=== PATIENT | male | born 1945 | race Two or more races ===

== ENCOUNTER 2024-05-15 13:03 | Inpatient (IN) | payer MEDICARE, SELFPAY ==
[2024-05-15] VITALS (13 sets, daily range): BP systolic 129–151; BP diastolic 54–65; BMI 24.9; BMI 25.5
--- NOTE | 2024-05-15 05:59 | EDRN ---
Patient arrives with PICC line in right arm and PEG tube.
--- NOTE | 2024-05-15 06:05 | ED.GENMED ---
History of Present Illness
General
Chief Complaint: Breathing Problem
Source: patient
Exam Limitations: none
Time Seen by Provider: 05/15/24 06:03
Nursing documentation reviewed up to this point in time: agreed with
History of Present Illness
History of Present Illness:
The patient is a pleasant 78-year-old man with a past medical history of head and neck cancer who is under the treatment of oncology at [facility]. According to his daughter, he receives immunotherapy 6 times a year to keep his cancer in remission and so
far, according to his daughter, his remission has been successful. The patient was brought in by ambulance after the family called 911 after they observed the patient's pulse ox to be in the 70s throughout the night. Patient does complain of
increased labored breathing and increased cough. Family reports that the patient has a history of aspiration pneumonia and primarily has nutrition through his feeding tube. In addition, he recently completed a course of various antibiotics through
a PICC line for an orbital cellulitis. His reports that the PICC line is due to be taken out tomorrow. Patient denies chest pain and pain anywhere. Patient does arrive with what looks like a right facial droop, however, the family reports
that the patient has a history of chronic trigeminal neuralgia which exacerbates and causes the symptoms from time to time. Patient also reports that overall they think the patient appears to look more puffy in his arms and legs.
Past History
Past History
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
ED Past Surgical History: Cardiac, Cholecystectomy and Other
Social History
Tobacco: Other
Alcohol: Other
Drug: None
Personal:
Living: with family
Employment: Other
Family History
Family History: Other
Review of Systems
Review of Systems
Allergies reviewed?: Yes
Other source history: family
All Other Systems: ROS reviewed and negative except as documented in HPI and ROS
Constitutional: Reports fever and fatigue
EENT: Reports other (Tightness of right face which appears from his trigeminal neuralgia)
Respiratory: Reports cough and trouble breathing
Cardiac: Reports no symptoms
ABD/GI: Reports diarrhea ('chronic' diarrhea from recent antibiotics according to family)
: Reports no symptoms
Musculoskeletal: Reports no symptoms
Skin: Reports no symptoms
Neurological: Reports no symptoms
Endocrine: Reports no symptoms
Hematologic/Lymphatic: Reports no symptoms
Psychiatric: Reports no symptoms
Phy Exam
Physical Exam
Physical Exam:
Physical Exam
General: Patient appears chronically ill but is fully awake, alert and answering questions. Right face appears drooped
Neck: supple. no meningeal signs. normal posterior pharynx
Heart: s1/s2 regular rate and rhythm
Lungs: Patient appears tachypneic. Short of breath with speaking. bilateral basal crackles
Abdomen: normal bowel sounds. Soft throughout. Feeding tube in place. Mildly distended
Neuro: alert and oriented. no focal neurological deficits
Skin: no rash
Psychiatric: well kept. interactive and cooperative
Extremities: no edema. no calf tenderness. negative homans. good distal pulses
Scores
Heart Failure Risk
Heart Failure Risk Score: Not Applicable
Course
Orders/Labs/Results
Orders:
Orders
05/15/24 05:55
EKG [Electrocardiogram (*1)] Urgent
Reason for Study: Shortness of Breath
EKG- Treatment ONCE
05/15/24 06:23
CR Chest - 2 Views Urgent
Comment:
Reason For Exam: hypoxia, SOB
05/15/24 06:[address] Non Medication Order As Directed
Physician Order: Chest x-ray reviewed. Able to use PICC line.
Above order entered?: Yes
05/15/24 07:20
Complete Blood Count/With Diff Urgent
Comprehensive Metabolic Panel Urgent
NT-proBNP Urgent
Troponin I Urgent
05/15/24 07:40
COVID-19 Antigen Urgent
Source: Nasal Swab
05/15/24 08:07
CT Chest Pe Study Urgent
Comment:
Reason For Exam: hypoxia, cough
05/15/24 08:58
Fluorescein Sodium [Ful-Melany] 1 mg .ROUTE .STK-MED ONE
Tetracaine HCl [Tetracaine 0.5% Ophthalmic Solution] 1 drop .ROUTE .STK-MED ONE
05/15/24 09:24
Furosemide [Lasix] 40 mg IV NOW STA
05/15/24 09:27
Lactic Acid Q4H
Comment: CANCEL 2nd LACTIC ACID IF 1st LACTIC ACID IS LESS THAN 2
Procalcitonin Urgent
PCT Algorithmm Indication: Respiratory
05/15/24 12:15
Lactic Acid Q4H
Comment: CANCEL 2nd LACTIC ACID IF 1st LACTIC ACID IS LESS THAN 2
Abnormal Lab Results
05/15/24
07:20
RBC 2.85 L 10^6/uL
(4.70-6.10)
Hgb 8.5 L g/dL
(13.0-18.0)
Hct 23.8 L %
(39.0-52.0)
Abs Immat Gran (auto) 0.1 H 10^3/uL
(0-0.05)
Absolute Lymphs (auto) 1.1 L 10^3/uL
(1.2-3.4)
Absolute Monos (auto) 1.3 H 10^3/uL
(0.1-0.6)
Immature Gran % 0.8 H %
(0-0.5)
Lymphocytes % 13.3 L %
(20.5-51.1)
Monocytes % 16.5 H %
(1.7-9.3)
BUN 28 H mg/dl
(9-20)
Glucose 109 H mg/dl
(70-99)
Total Protein 5.3 L g/dl
(6.3-8.2)
Albumin 3.2 L g/dl
(3.5-5.0)
05/15/24 07:20
05/15/24 07:20
Vital Signs
Initial and Last Documented VS:
Initial Vital Signs
Pulse Resp Pulse Ox
83 22 90
05/15/24 05:56 05/15/24 05:56 05/15/24 05:56
Last Documented Vital Signs
Temp Pulse Resp BP Pulse Ox
99.3 F 74 19 129/57 97
05/15/24 06:07 05/15/24 06:26 05/15/24 06:26 05/15/24 07:01 05/15/24 07:02
MDM/Problems Addressed
Differential Diagnosis Includes:
Pneumonia, pulmonary embolism, CHF
MDM/Problems Addressed:
Patient presents with acute hypoxia and shortness of breath
Chronic conditions affecting care:
Given patient has a history of chronic dysphagia, he is at increased risk of developing pneumonia.
Given patient has a history of coronary artery disease he is at increased risk of developing heart failure
Acute Exacerbation and/or Progression of Chronic Illness:
Patient may have acute exacerbation of aspiration which may have caused pneumonia
*Radiology
Radiology exam reviewed: preliminary read by ED provider (PICC line in good placement. Right pleural effusion with possible infiltrate seen by me. Chest x-ray reviewed by me) and radiology read reviewed
*Pulse Oximetry
Patient hypoxic: yes
*EKG
Interpreted by ED Provider?: Yes
Interpretation: normal
Comparison EKG: no comparison EKG present
Rate: normal
Rhythm: sinus
[place]: normal axis
Interval: normal interval
QRS Pattern: normal QRS
Ischemia: no ischemia
*Gleason Operator Interpretation
Rate: normal
Interpretation: normal
Rhythm: sinus
*Critical Care Note
Total Time (30-74mins, 75-104mins- exclusive of procedures): 47 minutes
comment:
47 minutes of critical care given to the patient including speaking to the family and patient multiple times to explain his condition, as well as reviewing patient's chest x-ray, CT, as well as speaking to the hospitalist at [facility]
[place] to gain more knowledge of patient's condition and recent antibiotic use.
Data Reviewed
Source: family
Patient Management
Social determinants of health affecting care: Living situation and Strong social support
Escalation/DeEscalation of care consider admission/obs:
Given patient's acute hypoxia and fluid overload, decision made to admit the patient for nasal oxygen and diuresis.
Update Note
Update Note:
7:30 am family expresses that they like patient transferred to Given that he has never been to [place] before and is somewhat of a complex patient given his history of recent infection and head and neck cancer. I called [facility] transfer center who
spoke to the oncologist on-call who then referred me to speak to the hospitalist. I spoke to the hospitalist, Dr. Harper, who was able to go over the patient's allergies with me as well as the antibiotics recently given to him. Dr. Harper to me the
patient is documented to be allergic to Augmentin due to a rash, he gets nausea and vomiting from Bactrim, he gets a rash from vancomycin, and reportedly gets mental status changes from Benadryl. Dr. Harper to me that the patient has tolerated
cefepime, Rocephin, and Levaquin. Dr. Harper told me that the patient was given Flagyl, linezolid and aztreonam for treatment of the orbital cellulitis. Dr. Harper also told me that the patient would not be able to get an inpatient bed at [facility] for at
least 7 days so transferring the patient would not be practical. I did explain this to the patient's family as well as the patient and assured him that we can comfortably treat him here at [place] and certainly be in touch with [facility] for any
concerns. We have also ordered old records from his last admission at [facility].
ED Attending Note
-
Portions of this chart may have been created with voice recognition software.� Occasional wrong word or��sound alike� substitutions may have occurred due to the inherent limitations of voice recognition software.
Discharge Plan
Departure
Patient Disposition: Admit
Date of Disposition: 05/15/24
Time of Disposition: 09:12
Admit to: Med/Surg
Presentation/result/management discussed w/ accepting MD/DO: Hospitalist
Patient with high blood pressure during this ER visit?: No
Condition: Good
Covid-19: Not Applicable
Discharge Problem:
Bilateral pleural effusion, Acute hypoxic respiratory failure
Referrals:
Gume Zamudio MD [Family Provider] -
Interventions
Interventions:
*General Assessment Last Done: 05/15/24 05:59
ED- Cardiac Assessment Last Done: 05/15/24 06:09
ED- Pulmonary Assessment Last Done: 05/15/24 06:07
Discharge Date and Time
Print Language: SYRIAC
[2024-05-15 07:36] LABS: % Basophils 0.3 % (0-2); % Eosinophils 2.7 % (0-6); % Immature Granulocytes 0.8 % (0-0.5); % Lymphocytes 13.3 % (20.5-51.1); % Monocytes 16.5 % (1.7-9.3); % Neutrophils 66.4 % (42.2-75.2); Absolute Eosinophils 0.2 10^3/uL (0-0.7); Absolute Immature Granulocytes 0.1 10^3/uL (0-0.05); Absolute Lymphocytes 1.1 10^3/uL (1.2-3.4); Absolute Monocytes 1.3 10^3/uL (0.1-0.6); Absolute Neutrophils 5.3 10^3/uL (1.4-6.5); Hematocrit 23.8 % (39.0-52.0); Hemoglobin 8.5 g/dL (13.0-18.0); Mean Corp Hgb Conc. 35.7 g/dL (33.0-37.0); Mean Corpuscular Hgb 29.8 pg (27.0-31.0); Mean Corpuscular Volume 83.5 fL (80.0-94.0); Platelet Count 147 10^3/uL (130-400); Red Blood Cell Count 2.85 10^6/uL (4.70-6.10); White Blood Cell Count 7.9 10^3/uL (4.8-10.8)
[2024-05-15 07:53] LABS: ALT (SGPT) 15 U/L (0-50); AST (SGOT) 19 U/L (17-59); Albumin 3.2 g/dl (3.5-5.0); Alkaline Phosphatase 45 U/L (38-126); Blood Urea Nitrogen 28 mg/dl (9-20); Calcium 8.4 mg/dl (8.4-10.2); Carbon Dioxide 29 mmol/L (22-30); Chloride 104 mmol/L (98-107); Estimated Creatinine Clearance 52 ml/min; Glucose 109 mg/dl (70-99); Potassium 4.3 mmol/L (3.5-5.1); Sodium 135 mmol/L (135-145); Total Bilirubin 0.4 mg/dl (0.2-1.3); Total Protein 5.3 g/dl (6.3-8.2); eGFR > 60.00
[2024-05-15 08:00] LABS: NT-proBNP 4200 pg/ml; Troponin I 0.027 ng/ml
[2024-05-15 08:20] LABS: COVID-19 Antigen Negative (Negative)
[2024-05-15 10:05] LABS: Lactic Acid 0.8 mmol/L (0.7-2.0)
[2024-05-15 10:24] LABS: Procalcitonin < 0.05 ng/ml (0.0-0.25)
[2024-05-15] MEDS: LASIX 40 MG IV (11:35)
--- NOTE | 2024-05-15 11:49 | HPS.HSE ---
Family Physician
-
Family Physician: Gume Zamudio MD
Chief Complaint
-
Shortness of breath, puffy legs
History of Present Illness
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
cellulitis (due to be removed 05/16), H/O sinus tachycardia that is presenting to the ED today for the complaint of shortness of breath. He was brought in by ambulance after family called 911, they observed his pulse ox to be near 70% over the night
the patient complained of worsening cough and labored breathing. Family reports that he does have previous episodes of aspiration, requiring nutrition via feeding tube. He additionally recently completed a course of multiple IV antibiotics through
a PICC line for orbital cellulitis. PICC line scheduled to be taken out on 05/16/2024. Patient denies chest pain, wheezing, fevers or chills, paresthesias, nausea/vomiting/diarrhea, urinary issues, abnormal bleeding or bruising. The patient and
his family state that his legs look more puffy than usual.
The patient's daughter is at the bedside and provides supplemental history. She states that he was previously treated with rituximab and radiation for his squamous cell carcinoma of the head and neck. She denies any known systemic chemotherapy,
denies doxorubicin or other pechanga-based agent. He was recently at [place] where he received blood transfusion and IV fluids following anemia with hemoglobin 6.7. Anemia was felt to be nutritional, no report of bleeding mention. He received these
fluids on 05/14/2024. Additionally he had thrush during a recent hospital stay and completed antifungal therapy. 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 He currently has a strict NPO
status due to high aspiration risk and anatomic abnormalities. She currently helps administer feedings through PEG tube with nutritional supplements, with Nutren 1.5 twice daily (states that 4 times daily was recommended, have not reached that
point in their titration).
Upon her arrival to the ED he was afebrile, hemodynamically stable, on room air with SpO2 90%. He was placed on 2 L of supplemental oxygen with improvement of SpO2 to high 90s. Labs in the ED showed hemoglobin 8.5, BNP 4200, BUN 28 though are
otherwise unremarkable. Troponin was negative, ECG without acute ST deviation or STEMI equivalent. CTA chest did not show any signs of PE, though CTA and x-ray with signs of pulmonary edema and small bilateral pleural effusions. He was given
Lasix 40 mg in ED.
Medical History
Past Medical History
Past Medical History: Reports HTN and NIDDM
Additional Past Medical History:
Squamous cell carcinoma�head and neck
Past Surgical History: Reports Other
Additional Past Surgical History:
Surgical debulking of squamous cell head and neck carcinoma
Status post PEG
Social History
Tobacco: Former Smoker
Alcohol: None
Drug: None
Family History
Family History: Not pertinent
Allergies / Home Medications
Allergies reflects when Allergies were last updated in [employer]
Home Medications with original date entered in [employer]
Allergy/Medication List:
Augmentin�full-body rash
Bactrim�nausea and abdomen pain
Benadryl�confusion, sensitive to affect
Vancomycin�'red man' syndrome
Cigarette smoke
Review of Systems
-
History Source: Family
A 12 point ROS was completed and negative except as noted: Yes
Constitutional: Reports No Symptoms
Respiratory: Reports Cough and Trouble Breathing
Cardiac: Reports No Symptoms
Abdomen/GI: Reports No Symptoms
Musculoskeletal: Reports No Symptoms
Skin: Reports No Symptoms
Neurological: Reports No Symptoms
Hematologic/Lymphatic: Reports No Symptoms
Physical Exam
Vital Signs
Vital Signs
Temp Pulse Resp BP Pulse Ox
99.3 F 72 17 140/55 98
05/15/24 06:07 05/15/24 11:37 05/15/24 11:37 05/15/24 11:37 05/15/24 11:37
Physical Exam
General: No Apparent Distress, Comfortable and Cachectic; No Respiratory Distress
HEENT: NormoCephalic, Anicteric, Moist mucous membranes and Atraumatic
Respiratory: Clear (To upper lung hooper) and Decreased Breath Sounds (Bilateral bases); No Wheezes, Rales or Rhonchi
Cardiac: S1/S2, Regular Rhythm, Murmur (Systolic), Peripheral Edema (1+ bilateral) and JVD (JVD to 10 cm above sternal angle); No Rub or Gallop
GI: Soft, Non Tender, Non Distended, Normal Bowel Sounds and Peg Tube
Musculoskeletal: No Clubbing, No Cyanosis and Other (Thin and frail, atrophic musculature, no gross deformity)
Skin: Warm and Dry; No Rash or Jaundice
Neuro: AO x 3, Nonfocal/grossly intact and Cranial Nerves Intact
Hematologic/Lymphatic: No Lymphadenopathy
Psych: Calm
Laboratory Results
-
05/15/24 07:20
05/15/24 07:20
Laboratory Results
Lactic Acid Cancelled 05/15/24 12:15
Total Bilirubin 0.4 mg/dl (0.2-1.3) 05/15/24 07:20
AST 19 U/L (17-59) 05/15/24 07:20
ALT 15 U/L (0-50) 05/15/24 07:20
Alkaline Phosphatase 45 U/L (38-126) 05/15/24 07:20
Troponin I 0.027 ng/ml 05/15/24 07:20
Data Reviewed
-
Diagnostic Radiology: Image Personally Visualized and interpreted, Discussed with Patient and Discussed with Family
CT Scan: Report Reviewed by me, Discussed with Patient and Discussed with Family
Lab Data: Labs Reviewed by me, Discussed with Patient and Discussed with Family
Impression/Plan
-
#Acute decompensated CHF, unspecified
#Acute hypoxemic respiratory insufficiency
#Small bilateral pleural effusion
-No known history of previous CHF, presented with hypervolemia and dyspnea; has not received pechanga based chemotherapy
-He was recently DC'd from [place], daughter states yesterday he received blood transfusion and IV fluids, orthopneic overnight
-He does have history of CAD though no known stents, no family history, no signs or symptoms of infiltrative disease
-On arrival had pulmonary congestion, improved with Lasix and 2 L supplemental oxygen
-Warm and wet phenotype, good perfusion present
Plan
-Continue with IV Lasix 40 mg daily, I's/O's and weights, moderate sodium restriction
-Order echocardiogram to assess LVEF, look for WMA or valvulopathy
-Monitor on telemetry for signs of arrhythmia
-Wean supplemental oxygen, SpO2 goal >90%
-Cardiology consult
#Chronic anemia
-Recently discharged from [facility] where he received blood transfusion and IVF for anemia
-Per daughter they believe that this was mostly nutritional in nature, cannot rule out
-Hemoglobin in the ED today was 8.5 with MCV 83.5
-No obvious signs of bleeding, not on anticoagulants
Plan
-Trend daily CBC and monitor for signs of bleeding
-Will defer on iron panel as he is within 24 hours of transfusion
-Hemoglobin goal >7.0
#NIDDM
-Home regimen includes metformin and glipizide via PEG
-No known history of microvascular disease
-Started on ISS with [employer]u-[employer]ks
#CAD
-No known cardiovascular interventions
-ECG, troponin negative here. No chest pain.
#Head and neck SCC
-Currently on immunotherapy which she receives 6 times yearly
-Status post radiation and rituximab; no chemotherapy history
-Receives his care at [facility] oncology
#Trigeminal neuralgia
-Associated with chronic right facial nerve deficit
-Has been mistaken for stroke/seizure and other hospitals
#Hypothyroidism
-Unclear etiology, med list from facility shows levothyroxine 50 mcg daily via PEG
-No signs or symptoms of thyroid dysfunction, added on TSH for completion
#Hypertension
-Home regimen currently includes metoprolol tartrate twice daily and valsartan 320 mg by PEG
-Was previously on amlodipine which was discontinued, metoprolol dose was reduced
-No known systemic complications, BP well-controlled at this time
#H/O sinus tachycardia
-Likely related to chronic deconditioning
-Currently on metoprolol twice daily as above
#PICC line in place
-Recently completed 6 weeks of IV antibiotics for orbital cellulitis/osteo
-PICC line was scheduled to be removed on 05/16, can likely remove while here
#S/P PEG
#History of aspiration
-Home tube feeds consist of Nutren 1.5 twice daily with goal of 4 times daily dosing
-At this point the daughter states he does not take anything by mouth due to very high aspiration risk
-Nutrition consulted for guidance of tube feeds
-Avoid oral medications
DVT prophylaxis: Lovenox
Diet: Resume tube feed intermittently, twice daily for now
CODE STATUS: Full code
Disposition: Admit to telemetry
History obtained by: Family, patient, ED provider
--- NOTE | 2024-05-15 12:53 | PHANOTE ---
med rec patricia(05/15/24)-patient's family states he was recently been switched to a tube only diet. Due to this, metformin ER 500mg QD was stopped since it cannot be crushed. Valsartan 320mg QD was stopped weeks ago due to symptoms.
--- NOTE | 2024-05-15 16:00 | PTCARENOTE ---
Pt received from the ED via stretcher. Transport was w/o incident. Pt is AAOx3, HR sl irreg, NSR in monitoring engineer, resp. easy, pulse ox 97% 2Lvia nc. Pt with noted fine crackles in b/l bases. abd soft, with Peg tube intact. Vss, Pt is afebrile. Pt
and Pt's family instructed on plan of care. Both Pt and family verbalized understanding of instructions. Call augustine is within reach.
[2024-05-15 17:43] LABS: Glucose - Point of Care 115 mg/dl (70-99)
[2024-05-15] MEDS: NOVOLOG FLEXPEN-MODERATE RESISTANCE SC (17:46)
[2024-05-15] MEDS: LOVENOX 40 MG SC (17:47)
[2024-05-15] MEDS: LIPITOR TUBE (17:54)
--- NOTE | 2024-05-15 19:21 | CON.CAR ---
Consultation
Consultation Request
Date/Time Consultation Requested: 05/15/2024 1240
Date/Time Consultation Performed: 05/15/2024 1300
Requesting Provider: Mik Dugan DO
Performing Provider: Florencio Pérez DO
Reason for Consultation: SOB, HF
Medical History
-
Chief Complaint: SOB, edema
History of Present Illness:
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
droop/abnormality, recurrent aspiration status post PEG tube placement 2023, orbital cellulitis March 2024 status post IV antibiotic treatment via PICC to be removed 05/16/2024, possible CAD who presents with worsening shortness of breath and lower
extremity swelling. Patient has extensive medical history and has undergone treatment at [facility] recently discharged from their care following multiple admissions. Patient follows with Dr. Boucher for CV care. Per patient, patient's daughter, and
patient's , patient had noted worsening shortness of breath and lower extremity swelling while at home. Patient recently been discharged from and due to anemia which was felt to be nutritional not related to bleeding. He received transfusions
due to hemoglobin of 6.7. Patient currently denies chest pain, lightheadedness, dizziness, near-syncope, syncope, PND, palpitations, or new or worsening weakness. He does note occasional dizziness with positional changes such as standing and does
routinely sleep on his side/elevated due to chronic GERD and aspiration precautions. Initial evaluation in the emergency department demonstrated patient hemodynamically stable however hypoxic on room air, patient placed on supplemental O2 with
improvement in O2. Initial lab work demonstrated anemia with elevated BNP of 4200. Troponin negative EKG without ST-T abnormality. No evidence of PE noted on CT scan however pleural effusions were noted. No reported family history of heart
disease. Patient is a former smoker, no alcohol, no illicits.
Past Medical History
Past Medical History: Other (per hpi)
Past Surgical History: Other (H/N sq cell carcinoma with surgery debulking, recurrent; PEG (2023))
Social History
Tobacco: Former Smoker
Alcohol: None
Drug: None
Personal:
Living: With Family
Employment: Retired
Family History
Family History: Reviewed & Not Pertinent
Allergies / Home Medications
Allergy/AdvReac Type Severity Reaction Status Date / Time
amoxicillin Allergy Unknown Verified 05/15/24 06:09
clavulanic acid Allergy Unknown Verified 05/15/24 06:09
[From Augmentin]
diphenhydramine Allergy Unknown Verified 05/15/24 06:09
[From Benadryl]
vancomycin Allergy Unknown Verified 05/15/24 06:09
�Medication �Instructions �Recorded �Confirmed �Type
amlodipine 10 mg tablet 10 mg feeding tube HS 05/15/24 05/15/24 History
aspirin 81 mg tablet,delayed 81 mg feeding tube DAILY 05/15/24 05/15/24 History
release
famotidine 20 mg tablet (Pepcid) 20 mg feeding tube DAILYPRN PRN if 05/15/24 05/15/24 History
patient cannot take omeprazole
fluoride (sodium) 1.1 % dental gel 1 applic dental BID 05/15/24 05/15/24 History
(DentaGel)
glimepiride 1 mg tablet 1 mg feeding tube DAILY 05/15/24 05/15/24 History
hydrocortisone 0.5 % topical cream 1 applic topical DAILY back 05/15/24 05/15/24 History
levothyroxine 25 mcg tablet 25 mcg feeding tube DAILY 05/15/24 05/15/24 History
(Synthroid)
loperamide 2 mg capsule 2 mg feeding tube Q6HPRN PRN 05/15/24 05/15/24 History
diarrhea
metoprolol tartrate 25 mg tablet 25 mg feeding tube HS 05/15/24 05/15/24 History
omeprazole 40 mg capsule,delayed 40 mg feeding tube DAILY 05/15/24 05/15/24 History
release
ondansetron 4 mg disintegrating 4 mg feeding tube Q6HPRN PRN nausea 05/15/24 05/15/24 History
tablet
Review of Systems
-
History Source: Patient and Family
All other systems: Negative unless noted
Constitutional: Fatigue
EENT: No Symptoms (no new symptoms)
Respiratory: Cough and Trouble Breathing
Cardiac: No Symptoms and Other (BL LE EDEMA)
Abdomen/GI: No Symptoms
: No Symptoms
Musculoskeletal: No Symptoms
Skin: No Symptoms
Neurological: No Symptoms
Endocrine: No Symptoms
Hematologic/Lymphatic: No Symptoms
Physical Exam
Vital Signs
Temp Pulse Resp BP Pulse Ox
97.8 F 70 16 146/65 97
05/15/24 16:29 05/15/24 16:29 05/15/24 16:29 05/15/24 16:29 05/15/24 16:29
Lab Results
05/15/24 07:20
05/15/24 07:20
Troponin I 0.027 ng/ml 05/15/24 07:20
Kxq-O-Potrglvstdb Pept 4200 pg/ml 05/15/24 07:20
Physical Exam
General: Respiratory Distress (mild, improved with NC; conversational dyspnea) and Other (cachectic; ill appearing)
HEENT: Normocephalic, Anicteric, Moist Mucous Membranes and Other (R facial droop; r facial twitch)
Respiratory: Crackles (BL bases with decreased sounds compared to upper hooper) and Other (no wheeze)
Cardiac: S1/S2, Regular Rhythm, JVD and Other (3/6 PEDRO RUSB; no rub or gallop)
GI: Soft, Non Tender and Other (PEG in place)
Rectal: Deferred by Provider
Musculoskeletal: No Clubbing, No Cyanosis and Edema (1+ BL LE)
Skin: Warm and Dry
Neuro: Awake, Alert, Oriented, No Motor Deficits and Other (R facial droop as noted above)
Psych: Calm
Impression / Plan
-
PCP: Gume Zamudio MD
Primary Cardiology: Colby Boucehr MD
.
Assessment:
Acute heart failure, unclear EF
� Patient reported echocardiogram at [place] as normal
� Follows with Dr. Boucher reported prior testing is unremarkable
� BNP greater than 4000
� Effusions noted on imaging
� EKG sinus rhythm without ST-T abnormality
� Positive exam for heart failure -- edema, JVD; history of dyspnea and orthopnea
Acute hypoxic respiratory insufficiency
Pleural effusion
Heart murmur, systolic ejection murmur
Diabetes mellitus type 2
Chronic anemia, possibly playing a role with dyspnea/hypoxia
Head/neck squamous cell carcinoma undergoing treatment
- h/o of radiation and rituximab; no reported chemotherapy
- on immunotherapy currently 6x/y
Trigeminal neuralgia
Hypothyroid
Hypertension
PEG tube due to aspiration
History of orbital cellulitis undergoing treatment
Recommendations:
� 2D echocardiogram assess cardiac size, shape, function, and valvular anatomy in setting of acute heart failure
� Agree with IV diuresis with Lasix 40 mg IV daily with strict intake and output, daily weights
� Further recommendations to follow echocardiography if further testing is required
� Obtain records from [facility] and primary connection worker
� Monitor on telemetry
Data Reviewed
-
EKG: Tracing Personally Visualized and interpreted
Radiology: Report Reviewed by me
CT Scan: Report Reviewed by me
Labs: Labs Reviewed by me
Old Records: Requested
Total Time Spent with Patient (in minutes): 55
[2024-05-15 21:22] LABS: Glucose - Point of Care 217 mg/dl (70-99)
[2024-05-15] MEDS: LOPRESSOR 25 MG TUBE (21:31)
[2024-05-16] MEDS: SYNTHROID 50 MCG TUBE (06:26)
[2024-05-16 06:28] VITALS: BMI 24.8
[2024-05-16 07:43] VITALS: BP 132/59
[2024-05-16 07:54] LABS: % Basophils 0.4 % (0-2); % Eosinophils 5.8 % (0-6); % Immature Granulocytes 1.1 % (0-0.5); % Lymphocytes 12.9 % (20.5-51.1); % Monocytes 16.6 % (1.7-9.3); % Neutrophils 63.2 % (42.2-75.2); Absolute Eosinophils 0.4 10^3/uL (0-0.7); Absolute Immature Granulocytes 0.1 10^3/uL (0-0.05); Absolute Monocytes 1.3 10^3/uL (0.1-0.6); Absolute Neutrophils 4.8 10^3/uL (1.4-6.5); Hematocrit 25.1 % (39.0-52.0); Hemoglobin 8.7 g/dL (13.0-18.0); Mean Corp Hgb Conc. 34.7 g/dL (33.0-37.0); Mean Corpuscular Hgb 29.6 pg (27.0-31.0); Mean Corpuscular Volume 85.4 fL (80.0-94.0); Nucleated Red Blood Cells % 0.9 % (-); Platelet Count 148 10^3/uL (130-400); Red Blood Cell Count 2.94 10^6/uL (4.70-6.10); Red Cell Dist. Width 12.7 % (11.5-14.5); White Blood Cell Count 7.5 10^3/uL (4.8-10.8)
[2024-05-16 08:05] LABS: Glucose - Point of Care 121 mg/dl (70-99)
[2024-05-16 08:16] LABS: Blood Urea Nitrogen 25 mg/dl (9-20); Calcium 8.5 mg/dl (8.4-10.2); Carbon Dioxide 28 mmol/L (22-30); Chloride 103 mmol/L (98-107); Estimated Creatinine Clearance 55 ml/min; Glucose 113 mg/dl (70-99); Potassium 4.2 mmol/L (3.5-5.1); Sodium 135 mmol/L (135-145); eGFR > 60.00
[2024-05-16] MEDS: NOVOLOG FLEXPEN-MODERATE RESISTANCE SC ×2 (08:21→15:17)
[2024-05-16] MEDS: DIOVAN 320 MG TUBE (08:22)
[2024-05-16] MEDS: LASIX 40 MG IV (08:23)
[2024-05-16] MEDS: SENOKOT-S 1 TABLET TUBE (08:24)
[2024-05-16] MEDS: LOW STRENGTH ASPIRIN 81 MG TUBE (08:24)
[2024-05-16] MEDS: VITAMIN B-12 1000 MCG TUBE (08:24)
[2024-05-16] MEDS: LOPRESSOR 25 MG TUBE ×2 (08:24→20:31)
[2024-05-16] MEDS: NSS (PRESERVATIVE FREE) 10 ML IV (08:25)
[2024-05-16] MEDS: PROTONIX IV 40 MG IV (08:25)
[2024-05-16] MEDS: NIZORAL 2% CREAM 1 APPLIC TOPICAL (08:37)
--- NOTE | 2024-05-16 11:09 | W.PN.CARDCBS ---
Addendum entered and electronically signed by En Melissa DO 05/16/24 14:19:
I saw and examined the patient.
The Furniture Sprayer's note was reviewed and I agree with the note.
Comment:
Plan:
Cont IV lasix diuresis
Echo pending. EF preserved by echo at [facility] as per family
HF teaching. Volume overload a combination of IVF and transfusion
Monitor Is and Os and daily wts.
Discussed with family at bedside.
Original Note:
Today's Communication / Plan
-
Talked with patient and in room and daughter on phone. Reviewed recent [facility] admission and his daughter was able to bring up his echo report and labs in the [place] portal which was very helpful
Repeat echo pending, but EF was preserved by echo 10 days ago.
Cont Lasix 40 mg IV daily and daily labs
Impression / Plan
-
PCP: Gume Zamudio MD
Primary Cardiology: Colby Boucher MD
Assessment:
Acute HFpEF
EF 70-74% by echo at [facility] 05/06/24
Acute hypoxic respiratory insufficiency
Small left and moderate right pleural effusion by CT chest 05/15/24
Heart murmur, systolic ejection murmur
Diabetes mellitus type 2
Chronic anemia, possibly playing a role with dyspnea/hypoxia, s/p transfusion x2 units within the last week
h/o head/neck squamous cell carcinoma undergoing treatment
h/o of radiation and rituximab; no reported chemotherapy
now on Keytruda for >2.5 years
Trigeminal neuralgia
Hypothyroid
Hypertension
PEG tube due to aspiration
History of orbital cellulitis undergoing treatment
Echo 05/06/24: [facility] study, EF 70-74% , no significant valve disease
Plan:
-Talked with patient, at bedside and his daughter by phone 05/16/24. Patient's and daughter are very knowledgeable about patient's PMH and his recent admission to [facility] for orbital cellulitis for which he was treated with Flagyl and Zyvox. He
was dehydrated at [facility] and was given IVFs and then anemic and he was transfused 2 unit PRBCs within the last week. His was handling the home infusion of antibiotics and also had an order for 1 L IVFs once a week, so it sounds like he was given 2
units PRBCs Thursday and then 1 L IVFs on Thursday, then on Thursday he came to [facility] with hypoxia and edema. Suspect possibly iatrogenic volume overload.
-Repeat echo to confirm that EF is preserved and that murmur is not due to severe valve disease. Patient's daughter was able to read echo report to me from the [place] portal over the phone on 05/16/24 and no valvular disease noted
-Patient symptomatically improved with 4 lbs diuresis overnight using Lasix 40 mg IV daily. Patient was not taking a diuretic prior to admission.
-Labs reviewed for 05/16/24 and Cre is 0.8 and BUN 25 which is stable. His edema has improved. Want to avoid ARI and dehydration following recent admission at [facility] for some level of dehydration in addition to the infectious issues as noted. Printed
labs and tubed to nursing station to give to patient's at her request for their records.
-PICC line in place following [place] admission and then home antibiotic infusions. PICC line is due to be removed, but will leave in place while in for labs draws and IV meds. Can remove PICC line when ready to be d/c'd to home.
Progress Note - Tire Bagger
Subjective
Date of Service: May 16, 2024
He is less edematous
Objective
Labs:
05/16/24 07:36
05/16/24 07:38
Labs
Hgb 8.7 g/dL (13.0-18.0) L 05/16/24 07:36
Hct 25.1 % (39.0-52.0) L 05/16/24 07:36
Plt Count 148 10^3/uL (130-400) 05/16/24 07:36
Sodium 135 mmol/L (135-145) 05/16/24 07:38
Potassium 4.2 mmol/L (3.5-5.1) 05/16/24 07:38
BUN 25 mg/dl (9-20) H 05/16/24 07:38
Creatinine 0.8 mg/dL (0.7-1.3) 05/16/24 07:38
Glucose 113 mg/dl (70-99) H 05/16/24 07:38
Troponins
05/15/24
07:20
Troponin I 0.027
Vital Signs and I&O:
Vital Signs
Temp Pulse Resp BP Pulse Ox
98.4 F 73 16 132/59 98
05/16/24 07:43 05/16/24 08:22 05/16/24 07:43 05/16/24 08:22 05/16/24 07:43
Vital Signs
Temp Pulse Resp BP Pulse Ox
98.4 F 73 16 132/59 98
05/16/24 07:43 05/16/24 08:22 05/16/24 07:43 05/16/24 08:22 05/16/24 07:43
Intake & Output
05/14/24 05/15/24 05/16/24 05/17/24
06:59 06:59 06:59 06:59
Intake Total 240 / 240
Output Total 790 / 790
Balance -550 / -550
Physical Exam
Physical Exam
GEN: NAD
HEENT: MMM
LUNGS: No audible wheeze
CV: SR on tele
ABD: ND
EXT: No edema B/L
NEURO: Gross non-focal
SKIN: No rash
[2024-05-16 11:10] VITALS: BMI 24.8
[2024-05-16 11:23] VITALS: BP 147/67
[2024-05-16 11:42] LABS: Glucose - Point of Care 193 mg/dl (70-99)
--- NOTE | 2024-05-16 11:59 | W.PN.HOSP.TC ---
Today's Communication/Plan
-
iv duresis
cards eval
speech eval
2d echo
Assessment / Plan
Assessment / Plan
General: No Apparent Distress
HEENT: Normocephalic, Atraumatic and Moist Mucous Membranes. No JVD
Respiratory: Decreased breath sound
Cardiac: Regular Rhythm and S1/S2 PEDRO RUSB PEDRO left midclavicular line without radiation to the axillary.
GI: Soft, NT, ND, BS+
Musculoskeletal: No Cyanosis , No Edema
Skin: Dry
Neuro: aao x3
Psych: normal affect
Acute congestive heart failure, unknown EF
� 2D echocardiogram
� IV Lasix
� Monitor daily weights
� Monitor urinary output
� Monitor renal function
� Keep K greater than 4
� Keep magnesium greater than 2
� Monitor on telemetry
� Follow cardiology recommendation
� GDMT dependent on EF
Acute hypoxemic respiratory failure, secondary to heart failure, resolved off oxygen.
Chronic anemia
-Recently discharged from [facility] where he received blood transfusion and IVF for anemia
-Per daughter they believe that this was mostly nutritional in nature, cannot rule out
-Hemoglobin in the ED today was 8.5 with MCV 83.5
-No obvious signs of bleeding, not on anticoagulants
-Trend daily CBC and monitor for signs of bleeding
-Will defer on iron panel as he is within 24 hours of transfusion
-Hemoglobin goal >7.0
NIDDM
-Home regimen includes metformin and glipizide via PEG
-No known history of microvascular disease
-Started on ISS with Accu-Cheks
CAD
-No known cardiovascular interventions
-ECG, troponin negative here. No chest pain.
-Continue asa, bb, histatin
Head and neck SCC
-Currently on immunotherapy which he receives 6 times yearly
-Status post radiation and rituximab; no chemotherapy history
-Receives his care at [facility] oncology
#Trigeminal neuralgia
-Associated with chronic right facial nerve deficit
-Has been mistaken for stroke/seizure and other hospitals
� Currently on baclofen. If remains hospitalized will obtain dosing to resume while inpatient
#Hypothyroidism
-Unclear etiology, med list from facility shows levothyroxine 50 mcg daily via PEG
-No signs or symptoms of thyroid dysfunction, added on TSH for completion
#Hypertension
-Home regimen currently includes metoprolol tartrate twice daily and valsartan 320 mg (per does not use) - will dc for now, by PEG
-Was previously on amlodipine which was discontinued, metoprolol dose was reduced
-No known systemic complications, BP well-controlled at this time
#H/O sinus tachycardia
-Likely related to chronic deconditioning
-Currently on metoprolol twice daily as above
#PICC line in place
-Recently completed 6 weeks of IV antibiotics for orbital cellulitis/osteo
-PICC line was scheduled to be removed on 05/16, can likely remove while here
-Can use at this time. Will consider DC when ready for DC
#S/P PEG
#History of aspiration
-Home tube feeds consist of Nutren 1.5 twice daily with goal of 4 times daily dosing
-At this point the daughter states he does not take anything by mouth due to very high aspiration risk
-Nutrition consulted for guidance of tube feeds
-Avoid oral medications
-Family wants Speech to eval.
DVT prophylaxis: Lovenox
Diet: Resume tube feed intermittently, twice daily for now
CODE STATUS: Full code
Anticipated Discharge: 24 - 48 hours
Subjective/Interval History
-
Date of Service: May 16, 2024
Seen and examined. No new complaints. No acute overnight events.
Breathing improved however still not at baseline
at bedside full update provided awaiting 2D echocardiogram continue IV diuretics cardiology to evaluate
Objective Data
-
Labs:
Laboratory Results
05/16/24 05/16/24
07:36 07:38
WBC 7.5
Hgb 8.7 L
Hct 25.1 L
Plt Count 148
Sodium 135
Potassium 4.2
Chloride 103
Carbon Dioxide 28
BUN 25 H
Creatinine 0.8
Glucose 113 H
Calcium 8.5
Vital Signs:
Vital Signs
Temp Pulse Resp BP Pulse Ox
98.2 F 77 18 147/67 94
05/16/24 11:23 05/16/24 11:23 05/16/24 11:23 05/16/24 11:23 05/16/24 11:23
I&O
05/15/24 05/16/24 05/17/24
06:59 06:59 06:59
Intake Total 240 / 240
Output Total 790 / 790
Balance -550 / -550
--- NOTE | 2024-05-16 14:13 | CM ---
Reviewed chart, met with patient's who was at bedside waiting for patient to return from procedure. Patient's stated that he lives with her in a split level home with 2 steps to enter the home and 5 steps to get to his bedroom once inside
the house.
Patient's stated that patient is primarily independent with ADLs, personal care, dressing and bathing but she is there for support. Patient's confirmed that she can do java application engineer, cook, clean and do laundry. Patient has a cane and a
walker but he ambulates independently. He is currently on o2 but does not have any oxygen at home. Right now, per patient's , he is on 2 liters.
Patient's and daughter can drive and get patient to his appointments and do all the shopping.
He has VN services through [facility] as that is the hospital system in which he is affiliated. He has a PICC for ABX he just completed. He has a PEG. Patient's stated that he really does not take anything by mouth.
He has not been to a SNF.
He has a prescription plan and uses, [facility] in [place] for all of his medications.
Patient's PCP is, Dr. Gume Zamudio.
Patient's confirmed that between her, her daughter and son who live close, they can support the scope of patient's care.
She wants resumption of [facility] V[facility].
Plan: Case management will continue to follow and assist with discharge planning. Will watch for o2 needs.
[2024-05-16 15:40] VITALS: BP 157/69
--- NOTE | 2024-05-16 16:11 | PTOTSP ---
ST Acute Care Evaluation
Pt currently presents with mild to moderate oropharyngeal dysphagia characterized by prolonged mastication, bolus formation, and anterior to posterior transport, delayed swallow initiations, inconsistent use of strategies such as R head turn and
cyclical ingestion (needs consistent prompting), and inconsistent airway protection with thin liquids and minced/moist solids.
Recommendations:
- Continue with TF as primary source of nutrition.
- Pt is permitted to also have pureed solids and mildly thick liquids as desired (pt has little desire to eat/drink by mouth). Encourage pt to ingest more mildly thick liquids to help him become accustomed to the consistency and to help with
hydration.
- ARHP - Unlimited ice/water outside of mealtime ONLY after thorough oral care has been performed.
- Aspiration precautions: Pt must be fully awake, alert, and sitting upright for all PO intake; full supervision for both ARHP as well as for all PO intake; small bites/sips; alternate bites/sips; use R head turn for ALL swallows; use double swallow.
- AUTOMOTIVE AIRCONDITIONING MECHANIC to f/u re: pt's tolerance of the recommended diet consistencies, pt's candidacy for diet upgrades, continued pt/family education, and swallowing exercises.
- AUTOMOTIVE AIRCONDITIONING MECHANIC to complete cognitive linguistic evaluation as able.
[2024-05-16 16:22] VITALS: BP 157/69; PULSE 77; O2SAT 97
[2024-05-16 16:37] LABS: Glucose - Point of Care 264 mg/dl (70-99)
[2024-05-16] MEDS: LOVENOX 40 MG SC (17:24)
[2024-05-16] MEDS: LIPITOR 40 MG TUBE (17:24)
[2024-05-16] MEDS: NOVOLOG FLEXPEN-MODERATE RESISTANCE 5 UNITS SC (17:25)
[2024-05-16 19:15] VITALS: BP 156/78
[2024-05-16] MEDS: SENOKOT-S TUBE (20:28)
[2024-05-16 23:30] VITALS: BP 151/67
[2024-05-17 00:02] LABS: Glucose - Point of Care 274 mg/dl (70-99)
[2024-05-17] MEDS: NOVOLOG FLEXPEN-MODERATE RESISTANCE 5 UNITS SC (00:08)
[2024-05-17 00:13] VITALS: BMI 24.8
[2024-05-17 03:16] VITALS: BP 158/69
[2024-05-17 06:00] VITALS: BMI 23.8
[2024-05-17 06:15] LABS: Glucose - Point of Care 131 mg/dl (70-99)
[2024-05-17] MEDS: NOVOLOG FLEXPEN-MODERATE RESISTANCE SC (06:15)
[2024-05-17] MEDS: SYNTHROID 50 MCG TUBE (06:16)
[2024-05-17 07:16] LABS: Hematocrit 26.4 % (39.0-52.0); Hemoglobin 9.2 g/dL (13.0-18.0); Mean Corp Hgb Conc. 34.8 g/dL (33.0-37.0); Mean Corpuscular Hgb 29.2 pg (27.0-31.0); Mean Corpuscular Volume 83.8 fL (80.0-94.0); Mean Platelet Volume 10.5 fL (7.4-10.4); Platelet Count 199 10^3/uL (130-400); Red Blood Cell Count 3.15 10^6/uL (4.70-6.10); Red Cell Dist. Width 12.7 % (11.5-14.5); White Blood Cell Count 7.2 10^3/uL (4.8-10.8)
[2024-05-17 07:30] VITALS: BP 152/68
[2024-05-17 07:48] LABS: Blood Urea Nitrogen 22 mg/dl (9-20); Calcium 8.6 mg/dl (8.4-10.2); Carbon Dioxide 29 mmol/L (22-30); Chloride 101 mmol/L (98-107); Estimated Creatinine Clearance 63 ml/min; Glucose 117 mg/dl (70-99); Potassium 3.7 mmol/L (3.5-5.1); Sodium 134 mmol/L (135-145); eGFR > 60.00
[2024-05-17] MEDS: SENOKOT-S TUBE (08:35)
[2024-05-17] MEDS: PROTONIX IV 40 MG IV (08:36)
[2024-05-17] MEDS: NSS (PRESERVATIVE FREE) 10 ML IV (08:36)
[2024-05-17] MEDS: LASIX 40 MG IV (08:37)
[2024-05-17] MEDS: LOPRESSOR 25 MG TUBE (08:39)
[2024-05-17] MEDS: LOW STRENGTH ASPIRIN 81 MG TUBE (08:39)
[2024-05-17] MEDS: VITAMIN B-12 1000 MCG TUBE (08:44)
[2024-05-17] MEDS: NIZORAL 2% CREAM 1 APPLIC TOPICAL (08:45)
--- NOTE | 2024-05-17 11:10 | W.PN.HOSP.TC ---
Today's Communication/Plan
-
Discussed case with cardiology. Cleared for discharge home. Continue home Lasix of 20 mg daily. Outpatient cardiology follow-up.
Will need outpatient PCP and oncology follow-up as well.
Assessment / Plan
Assessment / Plan
General: No Apparent Distress
HEENT: Normocephalic, Atraumatic and Moist Mucous Membranes. No JVD
Respiratory: Decreased breath sound
Cardiac: Regular Rhythm and S1/S2 PEDRO RUSB PEDRO left midclavicular line without radiation to the axillary.
GI: Soft, NT, ND, BS+
Musculoskeletal: No Cyanosis , No Edema
Skin: Dry
Neuro: aao x3
Psych: normal affect
Acute congestive heart failure, unknown EF
� 2D echocardiogram
� IV Lasix
� Monitor daily weights
� Monitor urinary output
� Monitor renal function
� Keep K greater than 4
� Keep magnesium greater than 2
� Monitor on telemetry
� Follow cardiology recommendation
� GDMT dependent on EF
Acute hypoxemic respiratory failure, secondary to heart failure, resolved off oxygen.
Chronic anemia
-Recently discharged from [facility] where he received blood transfusion and IVF for anemia
-Per daughter they believe that this was mostly nutritional in nature, cannot rule out
-Hemoglobin in the ED today was 8.5 with MCV 83.5
-No obvious signs of bleeding, not on anticoagulants
-Trend daily CBC and monitor for signs of bleeding
-Will defer on iron panel as he is within 24 hours of transfusion
-Hemoglobin goal >7.0
NIDDM
-Home regimen includes metformin and glipizide via PEG
-No known history of microvascular disease
-Started on ISS with Accu-Cheks
CAD
-No known cardiovascular interventions
-ECG, troponin negative here. No chest pain.
-Continue asa, bb, histatin
Head and neck SCC
-Currently on immunotherapy which he receives 6 times yearly
-Status post radiation and rituximab; no chemotherapy history
-Receives his care at [facility] oncology
#Trigeminal neuralgia
-Associated with chronic right facial nerve deficit
-Has been mistaken for stroke/seizure and other hospitals
� Currently on baclofen. If remains hospitalized will obtain dosing to resume while inpatient
#Hypothyroidism
-Unclear etiology, med list from facility shows levothyroxine 50 mcg daily via PEG
-No signs or symptoms of thyroid dysfunction, added on TSH for completion
#Hypertension
-Home regimen currently includes metoprolol tartrate twice daily and valsartan 320 mg (per does not use) - will dc for now, by PEG
-Was previously on amlodipine which was discontinued, metoprolol dose was reduced
-No known systemic complications, BP well-controlled at this time
#H/O sinus tachycardia
-Likely related to chronic deconditioning
-Currently on metoprolol twice daily as above
#PICC line in place
-Recently completed 6 weeks of IV antibiotics for orbital cellulitis/osteo
-PICC line was scheduled to be removed on 05/16, can likely remove while here
-Can use at this time. Will consider DC when ready for DC
#S/P PEG
#History of aspiration
-Home tube feeds consist of Nutren 1.5 twice daily with goal of 4 times daily dosing
-At this point the daughter states he does not take anything by mouth due to very high aspiration risk
-Nutrition consulted for guidance of tube feeds
-Avoid oral medications
-Family wants Speech to eval.
DVT prophylaxis: Lovenox
Diet: Resume tube feed intermittently, twice daily for now
CODE STATUS: Full code
Anticipated Discharge: Today
Subjective/Interval History
-
Date of Service: May 17, 2024
Seen and examined. No new complaints. No acute overnight events.
States that he is feeling significantly better breathing improved not requiring oxygen.
Objective Data
-
Labs:
Laboratory Results
05/17/24
06:35
WBC 7.2
Hgb 9.2 L
Hct 26.4 L
Plt Count 199 D
Sodium 134 L
Potassium 3.7
Chloride 101
Carbon Dioxide 29
BUN 22 H
Creatinine 0.7
Glucose 117 H
Calcium 8.6
Vital Signs:
Vital Signs
Temp Pulse Resp BP Pulse Ox
98.6 F 78 16 152/68 93
05/17/24 07:30 05/17/24 07:30 05/17/24 07:30 05/17/24 07:30 05/17/24 07:30
I&O
05/16/24 05/17/24 05/18/24
06:59 06:59 06:59
Intake Total 240 / 240
Output Total 790 / 790
Balance -550 / -550
--- NOTE | 2024-05-17 11:11 | W.DCSUMMARY ---
Discharge Summary
Discharge Data
Date of Admission: 05/15/24
Date of Discharge: 05/17/24
-
Pending Results: No
Hospital Course
79 male history of SCC head and neck, CAD, NIDDM, HTN, trigeminal neuralgia, recurrent aspiration s/p PEG, recent treatment of orbital cellulitis, sinus tachycardia. Presenting with shortness of breath. Recently received blood transfusion and IV
fluids. Reported EF from previous 2D echocardiogram 70%. Was found to have high BNP. 2D echocardiogram repeated demonstrating EF of 55 to 60% with aortic stenosis and regurgitant valves of mitral tricuspid. Was provided with IV diuretics.
Oxygen was weaned to room air eventually. Good urinary output. Evaluated by cardiology which recommended home diuretics of 20 mg daily with outpatient cardiology follow-up.
Evaluated by speech therapy recommended
-Continue with tube feeds as primary source.
-Pur�ed solids with mildly thick liquids as desired.
-Unlimited ice/water outside of mealtimes only after thorough oral care has been performed
-Aspiration precautions
-Outpatient speech therapy follow-up
CXR
IMPRESSION:
Small left and [id number] right pleural effusions with associated probable atelectasis.
CTChest PE Study
IMPRESSION:
1. No evidence of pulmonary embolism.
2. Small left and moderate right pleural effusions with associated compressive atelectasis.
3. Mildly enlarged mediastinal lymph nodes, likely reactive.
2d ehco
CONCLUSIONS
Normal left ventricular size, wall thickness and systolic function. No regional
wall motion abnormalities are seen. LV ejection fraction is 55-60% .
Mild to moderate mitral regurgitation.
Mild to moderate aortic stenosis. Peak/mean gradients across the aortic valve
are 30/16 mmHg. Aortic valve area 1.2 cm2. Mild to moderate aortic
regurgitation.
Mild tricuspid regurgitation. Estimated pulmonary artery pressure of 38 mmHg.
Pleural effusion present.
No prior study available for comparison.
Outpatient PCP Cardiology and Oncology follow up
Discharge Plan
-
Patient Disposition: Home (Routine Discharge)
Discharge Diagnosis/Procedures: HFpEF exacterbaiton
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
tachycardia
Condition: Good
Diet: As tolerated
Activity: As tolerated
Driving Restrictions: As prior to admission
Other Services: ST
Activity Restrictions/Additional Instructions:
Presenting with shortness of breath. Recently received blood transfusion and IV fluids. Reported EF from previous 2D echocardiogram 70%. Was found to have high BNP. 2D echocardiogram repeated demonstrating EF of 55 to 60% with aortic stenosis
and regurgitant valves of mitral tricuspid. Was provided with IV diuretics. Oxygen was weaned to room air eventually. Good urinary output. Evaluated by cardiology which recommended home diuretics of 20 mg daily with outpatient cardiology
follow-up.
Evaluated by speech therapy recommended
-Continue with tube feeds as primary source.
-Pur�ed solids with mildly thick liquids as desired.
-Unlimited ice/water outside of mealtimes only after thorough oral care has been performed
-Aspiration precautions
-Outpatient speech therapy follow-up
CXR
IMPRESSION:
Small left and lxayf-za-[id number] right pleural effusions with associated probable atelectasis.
CTChest PE Study
IMPRESSION:
1. No evidence of pulmonary embolism.
2. Small left and moderate right pleural effusions with associated compressive atelectasis.
3. Mildly enlarged mediastinal lymph nodes, likely reactive.
2d ehco
CONCLUSIONS
Normal left ventricular size, wall thickness and systolic function. No regional
wall motion abnormalities are seen. LV ejection fraction is 55-60% .
Mild to moderate mitral regurgitation.
Mild to moderate aortic stenosis. Peak/mean gradients across the aortic valve
are 30/16 mmHg. Aortic valve area 1.2 cm2. Mild to moderate aortic
regurgitation.
Mild tricuspid regurgitation. Estimated pulmonary artery pressure of 38 mmHg.
Pleural effusion present.
No prior study available for comparison.
Outpatient PCP Cardiology and Oncology follow up
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
Referrals:
Aishwarya Morel MD [Non-Admitting Privileges] - in two to four weeks
Gume Zamudio MD [Family Provider] -
Florencio Pérez DO [Active] - in one week
Prescriptions:
New
atorvastatin 40 mg Tablet
40 mg feeding tube QPM Qty: 30 0RF
cyanocobalamin (vitamin B-12) 1,000 mcg Tablet
1,000 mcg feeding tube DAILY Qty: 30 0RF
baclofen 5 mg Tablet
5 mg feeding tube TIDPRN PRN (Reason: spasm) Qty: 30 0RF
furosemide [Lasix] 20 mg tablet
20 mg PO DAILY Qty: 30 0RF
Continued
hydrocortisone 0.5 % Cream
1 applic TOPICAL DAILY
loperamide 2 mg Capsule
2 mg feeding tube Q6HPRN PRN (Reason: diarrhea)
omeprazole 40 mg Capsule,Delayed Release(Dr/Ec)
40 mg feeding tube DAILY
aspirin 81 mg Tablet,Delayed Release (Dr/Ec)
81 mg feeding tube DAILY
levothyroxine [Synthroid] 25 mcg Tablet
25 mcg feeding tube DAILY
glimepiride 1 mg Tablet
1 mg feeding tube DAILY
famotidine [Pepcid] 20 mg Tablet
20 mg feeding tube DAILYPRN PRN (Reason: if patient cannot take omeprazole)
amlodipine 10 mg Tablet
10 mg feeding tube HS
ondansetron 4 mg Tablet,Disintegrating
4 mg feeding tube Q6HPRN PRN (Reason: nausea)
fluoride (sodium) [DentaGel] 1.1 % Gel
1 applic DENTAL BID
metoprolol tartrate 25 mg Tablet
25 mg feeding tube HS
Discharge Orders:
Discharge Patient (As Directed); Ordered 05/17/24
Ordered By: Jin Harper
Discharge Date and Time
Print Language: UKRAINIAN
--- NOTE | 2024-05-17 11:25 | PTCARENOTE ---
attending notified pt's has enteral feeding from home being administered. D/C order. will D/W CM
[2024-05-17 11:40] VITALS: BP 165/70
[2024-05-17 11:49] LABS: Glucose - Point of Care 203 mg/dl (70-99)
--- NOTE | 2024-05-17 12:28 | CM ---
CM reviewed chart and noted dc order
Bedside meeting with pt, spouse and dtr
Requesting [facility] be arranged on dc
Also requesting home O2 eval as they are hopeful for backup O2
Home O2 eval order placed and pt does not qualify
DME providers given to family per request as they may want to consider private paying for portable tank
IMM verbally reviewed- copy provided
Family requesting to speak with Dr Harper regarding questions- TT sent
Referral made to [facility] via [facility]
Call to provider [phone] and pt accepted back for service
[facility] order requested
Discharge Disposition- home with [facility]
Fax- [phone]
--- NOTE | 2024-05-17 13:22 | W.PN.CARDCBS ---
Addendum entered and electronically signed by En Melissa DO 05/17/24 17:06:
I saw and examined the patient.
The [employer] Dra[employer]'s note was reviewed and I agree with the note.
Comment:
Plan:
Patient and are enthusiastic about discharge today.
His weight is down significantly from admission.
Echo reviewed and remains stable compared to prior echo. Prior records from [facility] reviewed.
Would discharge on Lasix 20 mg daily and have patient reassessed by outside [employer].
Discussed monitoring daily weights and calling his [employer] with weight gain.
They were appreciative.
Follow-up with Dr. Boucher.
Discussed with hospitalist.
Original Note:
Today's Communication / Plan
-
Echo stable
Weight down
Lasix 20 mg daily at home
Sending records to Dr. Boucher
Impression / Plan
-
PCP: Gume Zamudio MD
Primary Cardiology: Colby Boucher MD
Assessment:
Acute HFpEF
EF 70-74% by echo at [facility] 05/06/24
Acute hypoxic respiratory insufficiency
Small left and moderate right pleural effusion by CT chest 05/15/24
Heart murmur, systolic ejection murmur
Diabetes mellitus type 2
Chronic anemia, possibly playing a role with dyspnea/hypoxia, s/p transfusion x2 units within the last week
h/o head/neck squamous cell carcinoma undergoing treatment
h/o of radiation and rituximab; no reported chemotherapy
now on Keytruda for >2.5 years
Trigeminal neuralgia
Hypothyroid
Hypertension
PEG tube due to aspiration
History of orbital cellulitis undergoing treatment
Moderate by echo at [facility] 05/06/24, mild to mod by echo at 05/16/24
Echo 05/06/24: [facility] study, EF 70-74%, mod , mild MR
Echo 05/17/24: EF 55-60%, mild to mod MR, mild to mod
Plan:
-Patient had repeat echo at 05/17/24 and it was similar to his echo at [facility] earlier this month. Patient's family was able to provide previous echo report and it is summarized above
-HF likely due to IVFs and transfusions related to recent hospitalizations for dehydration related to infection and anemia.
-Weight is down as much as 10 lbs with Lasix 40 mg IV daily. Patient was not taking a diuretic prior to admission. Recommend Lasix 20 mg PO daily upon discharge. Want to avoid ARI and dehydration following recent admission at [facility] for some level of
dehydration in addition to the infectious issues as noted.
-Talked with patient, at bedside and his daughter by phone 05/16/24. Patient's and daughter are very knowledgeable about patient's PMH and his recent admission to [facility] for orbital cellulitis for which he was treated with Flagyl and Zyvox. He
was dehydrated at [facility] and was given IVFs and then anemic and he was transfused 2 unit PRBCs within the last week. His was handling the home infusion of antibiotics and also had an order for 1 L IVFs once a week, so it sounds like he was given 2
units PRBCs Thursday and then 1 L IVFs on Thursday, then on Thursday he came to [facility] with hypoxia and edema.
-PICC line in place following [place] admission and then home antibiotic infusions. PICC line is due to be removed, but will leave in place while in for labs draws and IV meds. Can remove PICC line when ready to be d/c'd to home.
-Patient will follow up with Dr. Boucher, he has [facility] arranged.
Progress Note - Front Desk Agent
Subjective
Date of Service: May 17, 2024
He feels better and wants to go home
Objective
Labs:
05/17/24 06:35
05/17/24 06:35
Labs
Hgb 9.2 g/dL (13.0-18.0) L 05/17/24 06:35
Hct 26.4 % (39.0-52.0) L 05/17/24 06:35
Plt Count 199 10^3/uL (130-400) D 05/17/24 06:35
Sodium 134 mmol/L (135-145) L 05/17/24 06:35
Potassium 3.7 mmol/L (3.5-5.1) 05/17/24 06:35
BUN 22 mg/dl (9-20) H 05/17/24 06:35
Creatinine 0.7 mg/dL (0.7-1.3) 05/17/24 06:35
Glucose 117 mg/dl (70-99) H 05/17/24 06:35
Troponins
05/15/24
07:20
Troponin I 0.027
Vital Signs and I&O:
Vital Signs
Temp Pulse Resp BP Pulse Ox
97.6 F 71 16 165/70 97
05/17/24 11:40 05/17/24 11:40 05/17/24 11:40 05/17/24 11:40 05/17/24 11:40
Vital Signs
Temp Pulse Resp BP Pulse Ox
97.6 F 71 16 165/70 97
05/17/24 11:40 05/17/24 11:40 05/17/24 11:40 05/17/24 11:40 05/17/24 11:40
Intake & Output
05/15/24 05/16/24 05/17/24 05/18/24
06:59 06:59 06:59 06:59
Intake Total 240 / 240
Output Total 790 / 790
Balance -550 / -550
Physical Exam
Physical Exam
GEN: NAD
HEENT: MMM
LUNGS: No audible wheeze
CV: SR on tele
ABD: ND
EXT: No edema B/L
NEURO: Gross non-focal
SKIN: No rash
--- NOTE | 2024-05-17 17:00 | CM ---
Received call from [facility] (ph [phone]) asking if patient's PICC line was discontinued prior to d/c- nurse Rina confirms PICC was discontinued and Urmila was informed of same. Urmila thinks oncologist intended for PICC
line to remain in place - she will reach out to oncologist in this regard.
== END 2024-05-17 14:13 | disposition home health service (06) | DRG 291 ==
LOC: 3 WEST ACU 13:03
PROVIDERS: ADMITTING PHYSICIAN Internal Medicine; ATTENDING PHYSICIAN Hospitalist; CONSULT PHYSICIAN Internal Medicine Cardiovascular Disease; EMERGENCY PHYSICIAN Emergency Medicine; FAMILY PHYSICIAN Internal Medicine
DX: I11.0 Hypertensive heart disease with heart failure (principal); I50.33 Acute on chronic diastolic (congestive) heart failure; J96.01 Acute respiratory failure with hypoxia; E11.9 Type 2 diabetes mellitus without complications; E03.9 Hypothyroidism, unspecified; G50.0 Trigeminal neuralgia; C76.0 Malignant neoplasm of head, face and neck; I25.10 Atherosclerotic heart disease of native coronary artery without angina pectoris; D53.9 Nutritional anemia, unspecified; R00.0 Tachycardia, unspecified; I08.0 Rheumatic disorders of both mitral and aortic valves; Z11.52 Encounter for screening for COVID-19; Z93.1 Gastrostomy status; Z92.3 Personal history of irradiation; Z88.1 Allergy status to other antibiotic agents; Z88.0 Allergy status to penicillin; Z87.891 Personal history of nicotine dependence; Z79.899 Other long term (current) drug therapy; Z79.890 Hormone replacement therapy; Z79.84 Long term (current) use of oral hypoglycemic drugs; Z79.82 Long term (current) use of aspirin
CPT/HCPCS: 71046; 71275; 80048; 80053; 82962; 83605; 83735; 83880; 84145; 84443; 84484; 85025; 85027; 87811; 92610; 93005; 93306; 96374; 97162; 99291; Q9967

== ENCOUNTER → 2024-12-07 14:42 | Outpatient (REF) | payer MEDICARE, SELFPAY | LOC: HWRCS 14:42 | PROVIDERS: ATTENDING PHYSICIAN Internal Medicine Cardiovascular Disease; FAMILY PHYSICIAN Internal Medicine | DX: I25.10 Atherosclerotic heart disease of native coronary artery without angina pectoris (principal); I50.30 Unspecified diastolic (congestive) heart failure; I35.0 Nonrheumatic aortic (valve) stenosis | CPT/HCPCS: 93306 ==

== ENCOUNTER → 2025-03-22 13:10 | Outpatient (REF) | payer MEDICARE, SELFPAY | LOC: RAD 13:10 | PROVIDERS: ATTENDING PHYSICIAN Internal Medicine Cardiovascular Disease; FAMILY PHYSICIAN Internal Medicine | DX: Z92.3 Personal history of irradiation (principal); I65.23 Occlusion and stenosis of bilateral carotid arteries | CPT/HCPCS: 93880 ==

== ENCOUNTER → 2025-06-27 11:10 | Outpatient (REF) | payer MEDICARE, SELFPAY | LOC: HWRCS 11:10 | PROVIDERS: ATTENDING PHYSICIAN Internal Medicine Cardiovascular Disease; FAMILY PHYSICIAN Internal Medicine | DX: I25.10 Atherosclerotic heart disease of native coronary artery without angina pectoris (principal); I44.7 Left bundle-branch block, unspecified | CPT/HCPCS: 93306 ==